=== PATIENT | female | born 1995 | race Caucasian/White ===

== ENCOUNTER 2022-10-21 00:37 | Emergency (ER) | payer MEDICAID ==
[~2022-10-21] VITALS: Ht 144.8 cm; Wt 62.8 kg
[2022-10-21 00:59] VITALS: BP 144/80; O2SAT 100
[2022-10-21] MEDS ORDERED: DOXY100C5 MT (02:32)
[2022-10-21] MEDS ORDERED: CEFTRIAXONE SODIUM 500 MG/VIAL IM ONE (02:45)
[2022-10-21 02:55] VITALS: PULSE 73; RESP 16; TEMP 97.5
[2022-10-21 15:27] LABS: CLARITY URINE CLEAR (CLEAR); COLOR URINE YELLOW (YELLOW); KETONES URINE NEGATIVE (NEGATIVE); LEUKOCYTE ESTERASE URINE NEGATIVE (NEGATIVE); NITRITE URINE NEGATIVE (NEGATIVE); OCCULT BLOOD URINE 1+ (NEGATIVE); PH URINE 5.5 (4.5-8.0); PROTEIN URINE NEGATIVE (NEGATIVE); SPECIFIC GRAVITY URINE 1.019 (1.005-1.030); UROBILINOGEN URINE 0.2 E.U./dL (0.2-1.0)
[2022-10-26 04:10] LABS: NEISSERIA GONORRHOEAE NAA Negative (Negative)
== END 2022-10-21 02:55 | disposition home or self-care (01) ==
LOC: ER 00:37
DX: Z20.2 Contact with and (suspected) exposure to infections with a predominantly sexual mode of transmission (principal)
CPT/HCPCS: 81003; 81025; 87491; 87591; 96372; 99283; J0696; Z7610

== ENCOUNTER 2022-11-09 00:19 | Emergency (ER) | payer MEDICAID ==
[~2022-11-09] VITALS: Ht 144.8 cm; Wt 63.5 kg
[~2022-11-09 00:19] MED LIST: DOXY100C5 MT
[2022-11-09 01:24] VITALS: BP 136/92; PULSE 77; RESP 16; TEMP 98.7; O2SAT 100
[2022-11-09 03:09] LABS: KETONES URINE NEGATIVE (NEGATIVE); LEUKOCYTE ESTERASE URINE 2+ (NEGATIVE); NITRITE URINE NEGATIVE (NEGATIVE); OCCULT BLOOD URINE 3+ (NEGATIVE); PROTEIN URINE 2+ (NEGATIVE); SPECIFIC GRAVITY URINE 1.038 (1.005-1.030)
[2022-11-09 03:41] LABS: *BARBITURATES SCREEN URINE NEGATIVE (NEGATIVE); *BENZODIAZEPINES SCREEN URINE NEGATIVE (NEGATIVE); *COCAINE SCREEN URINE NEGATIVE (NEGATIVE); CANNABINOID URINE SCREEN NEGATIVE (NEGATIVE); METHADONE URINE SCREEN NEGATIVE (NEGATIVE); OPIATES URINE SCREEN NEGATIVE (NEGATIVE); PHENCYCLIDINE URINE SCREEN NEGATIVE (NEGATIVE)
[2022-11-09 03:43] LABS: *AMPHETAMINES SCREEN URINE PRESUMTIVE POSITIVE (NEGATIVE)
[2022-11-09 03:56] LABS: CLARITY URINE CLOUDY (CLEAR); COLOR URINE YELLOW (YELLOW)
[2022-11-09] MEDS ORDERED: METR70GE5 VG (04:54)
[2022-11-09] MEDS ORDERED: SULF1TAB48 MT (04:54)
[2022-11-09] MEDS ORDERED: FLUC150T46 PO (04:54)
[2022-11-12] MEDS ORDERED: METR-167 MT (14:53)
[2022-11-12] MEDS ORDERED: CEPH500C2 MT (14:53)
[2022-11-12] MEDS ORDERED: FLUC150T46 MT (14:53)
[2022-11-13 06:08] LABS: NEISSERIA GONORRHOEAE NAA Negative (Negative)
== END 2022-11-09 05:24 | disposition home or self-care (01) ==
LOC: ER 00:56
DX: N39.0 Urinary tract infection, site not specified (principal); I10 Essential (primary) hypertension
CPT/HCPCS: 87491; 87591; 80305; 81003; 81025; 87086; 87210; 99283; Z7610

== ENCOUNTER 2022-11-14 14:10 | Emergency (ER) | payer MEDICAID ==
[~2022-11-14] VITALS: Ht 144.8 cm; Wt 61.2 kg
[~2022-11-14 14:10] MED LIST changes: +CEPH500C2 MT; +FLUC150T46 MT; +FLUC150T46 PO; +METR-167 MT; +METR70GE5 VG; +SULF1TAB48 MT
[2022-11-14 14:22] VITALS: BP 116/73; PULSE 81; RESP 16; TEMP 98.5; O2SAT 99
[2022-11-14] MEDS ORDERED: FLUC150T46 MT (16:37)
[2022-11-14] MEDS ORDERED: CEPH500C2 MT (16:37)
== END 2022-11-14 17:32 | disposition home or self-care (01) ==
LOC: ER 14:25
DX: Z76.0 Encounter for issue of repeat prescription (principal); I10 Essential (primary) hypertension; Z79.899 Other long term (current) drug therapy
CPT/HCPCS: 99283

== ENCOUNTER 2022-12-28 21:07 | Emergency (ER) | payer MEDICAID ==
[~2022-12-28] VITALS: Ht 152.4 cm; Wt 50.0 kg
[~2022-12-28 21:07] MED LIST changes: +CEPH500T PO
[2022-12-28 21:14] VITALS: BP 132/88; PULSE 78; RESP 18; TEMP 97.5; O2SAT 100
== END 2022-12-28 23:35 | disposition left against medical advice (07) ==
LOC: ER 21:07
DX: Z53.21 Procedure and treatment not carried out due to patient leaving prior to being seen by health care provider (principal); I49.9 Cardiac arrhythmia, unspecified
CPT/HCPCS: 93005; 99281

== ENCOUNTER 2022-12-29 00:43 | Emergency (ER) | payer MEDICAID ==
[~2022-12-29] VITALS: Ht 144.8 cm; Wt 55.3 kg
[2022-12-29 00:55] VITALS: BP 132/95; PULSE 72; RESP 16; TEMP 98; O2SAT 98
[2022-12-29] MEDS ORDERED: SODIUM CHLORIDE 0.9% 1,000 ML IV ONE (01:15)
[2022-12-29] MEDS ORDERED: ONDANSETRON HCL 4MG/2ML INJ IV STA (01:15)
[2022-12-29 01:56] LABS: BASOPHILS % 0.5 % (0.0-2.0); CHLORIDE 104 mEq/L (98-107); EOSINOPHILS % 0.5 % (0.0-5.0); HEMATOCRIT. 37.8 % (36.0-48.0); HEMOGLOBIN. 12.6 g/dL (12.0-16.0); INDEX HEMOLYSI 1 (1-3); INDEX ICTERIC 1 (1-4); INDEX LIPEMIC 1 (1-3); LYMPHOCYTES % 31.8 % (20.0-50.0); MEAN CORPUSCULAR HEMOGLOBIN 28.9 pg (28.0-32.0); MEAN CORPUSCULAR HGB CONC 33.3 g/dL (31.0-37.0); MEAN PLATELET VOLUME 8.7 fl (7.4-10.4); NEUTROPHILS % 59.2 % (40.0-76.0); PLATELET 310 x1000/uL (130-400); POTASSIUM 3.3 mEq/L (3.5-5.1); RED BLOOD CELL COUNT 4.34 mill/uL (4.2-5.4); RED CELL DISTRIBUTION WIDTH 15.6 % (11.6-14.6); SODIUM 138 mEq/L (136-145); WHITE BLOOD COUNT 5.3 x1000/uL (4.5-11.0)
[2022-12-29 01:58] LABS: CALCIUM 8.8 mg/dL (8.5-10.1)
[2022-12-29 04:16] LABS: ALANINE AMINOTRANSFERASE 25 IU/L (13-61); ALBUMIN 3.5 g/dL (3.4-5.0); ASPARTATE AMINOTRANSFERASE 17 IU/L (15-37); BILIRUBIN TOTAL 0.3 mg/dL (0.1-1.0); CARBON DIOXIDE 31 mEq/L (21-32); CREATININE 0.7 mg/dL (0.6-1.3); ETHANOL BLOOD < 10 mg/dL (-10); GLUCOSE 95 mg/dL (70-105); PROTEIN TOTAL 7.2 g/dL (6.0-8.3); UREA NITROGEN BLOOD 9 mg/dL (7-21)
[2022-12-29 04:52] LABS: HCG SCREEN NEGATIVE
== END 2022-12-29 06:28 | disposition left against medical advice (07) ==
LOC: ER 00:43
DX: Z53.21 Procedure and treatment not carried out due to patient leaving prior to being seen by health care provider (principal)
CPT/HCPCS: 80053; 81025; 80320; 84703; 85025; 36415; 99281; J7030; G0480

== ENCOUNTER 2023-01-12 05:55 | Emergency (ER) | payer MEDICAID ==
[~2023-01-12] VITALS: Ht 144.8 cm; Wt 59.7 kg
[2023-01-12 05:59] VITALS: BP 133/99; PULSE 107; TEMP 98.2; O2SAT 100
== END 2023-01-12 06:35 | disposition home or self-care (01) ==
LOC: ER 06:13
DX: Z00.00 Encounter for general adult medical examination without abnormal findings (principal)
CPT/HCPCS: 99281